=== PATIENT | female | born 1985 | race Caucasian/White ===

== ENCOUNTER 2024-03-02 14:12 | Emergency (ER) | payer BC, SELFPAY ==
[2024-03-02 14:16] VITALS: BP 128/79
[2024-03-02 15:27] VITALS: BP 105/70
[2024-03-02] MEDS: NSS 1000 IV (15:33)
[2024-03-02 15:39] VITALS: BMI 22.7
[2024-03-02 15:44] LABS: % Basophils 0.5 % (0-2); % Eosinophils 0.7 % (0-6); % Immature Granulocytes 0.2 % (0-0.5); % Lymphocytes 17.2 % (20.5-51.1); % Monocytes 6.7 % (1.7-9.3); % Neutrophils 74.7 % (42.2-75.2); Absolute Eosinophils 0.1 10^3/uL (0-0.7); Absolute Lymphocytes 1.4 10^3/uL (1.2-3.4); Absolute Monocytes 0.6 10^3/uL (0.1-0.6); Absolute Neutrophils 6.1 10^3/uL (1.4-6.5); Hematocrit 36.4 % (37.0-47.0); Hemoglobin 12.6 g/dL (12.0-16.0); Mean Corp Hgb Conc. 34.6 g/dL (33.0-37.0); Mean Corpuscular Hgb 29.6 pg (27.0-31.0); Mean Corpuscular Volume 85.6 fL (81.0-99.0); Mean Platelet Volume 9.4 fL (7.4-10.4); Nucleated Red Blood Cells % 0 %; Platelet Count 279 10^3/uL (130-400); Red Blood Cell Count 4.25 10^6/uL (4.20-5.40); Red Cell Dist. Width 12.7 % (11.5-14.5); White Blood Cell Count 8.2 10^3/uL (4.8-10.8)
[2024-03-02 15:57] LABS: ALT (SGPT) 12 U/L (0-35); AST (SGOT) 20 U/L (14-36); Albumin 4.8 g/dl (3.5-5.0); Alkaline Phosphatase 63 U/L (38-126); Blood Urea Nitrogen 10 mg/dl (7-17); COVID-19 Antigen Negative (Negative); Carbon Dioxide 22 mmol/L (22-30); Chloride 105 mmol/L (98-107); Estimated Creatinine Clearance 102 ml/min; Glucose 100 mg/dl (70-99); Magnesium 2.2 mg/dl (1.6-2.3); Potassium 3.9 mmol/L (3.5-5.1); Sodium 136 mmol/L (135-145); Total Bilirubin 0.6 mg/dl (0.2-1.3); Total Protein 8.2 g/dl (6.3-8.2); eGFR > 60.00
[2024-03-02 16:00] VITALS: BP 109/69
--- NOTE | 2024-03-02 16:53 | ED.GENMED ---
History of Present Illness
General
Chief Complaint: Heart Rate Problem
Source: patient and family
Exam Limitations: none
Time Seen by Provider: 03/02/24 15:07
History of Present Illness
History of Present Illness:
38-year-old female who has a history of anxiety and is on Pristiq. Start escitalopram recently. Shortly after taking a few days of citalopram on Friday she began to feel like her heart rate was high. States it was as high as 130. She also
started to have some muscle tension and spasm and felt little bit lightheaded. Patient stopped the citalopram. Patient has not taken it 2 days. She also felt a little bit 'ill'. She presents for further evaluation. Currently feels better. No
chest pain. No shortness of breath.
Past History
Past History
ED Past Medical History: Psychiatric (Anxiety), Other (Borderline insulin resistant diabetes that is diet controlled) and Other (Migraine headaches, anxiety, GERD)
ED Past Surgical History: None
Social History
Tobacco: Non-smoker
Alcohol: None
Drug: None
Personal: Single
Living: with family
Employment: Student
Family History
Family History: Negative Early CAD, CAD or Sudden
Phy Exam
Physical Exam
Physical Exam:
CONSTITUTIONAL Patient alert and oriented to person, place and time. Well-appearing. Vital signs reviewed.
HEAD atraumatic, normocephalic.
EYES eyelids normal to inspection, Extraocular muscles intact, Conjunctiva normal, Sclera normal.
NECK normal range of motion, Trachea midline, no jugular venous distention.
RESPIRATORY CHEST No respiratory distress noted, Chest expansion equal, Bilateral breath sounds clear.
CARDIOVASCULAR regular rate and rhythm, Heart sounds normal.
ABDOMEN abdomen nontender, Bowel sounds normal. No distention.
BACK normal inspection, no obvious deformities
UPPER EXTREMITY range of motion normal, Motor strength normal, no cyanosis, no edema.
LOWER EXTREMITY range of motion normal, Motor strength normal, no cyanosis, no edema.
NEURO Speech normal, No focal motor deficits, Anthony coma scale 15, Memory normal, Cranial Nerves intact to screening exam.
SKIN skin warm, dry, and normal in color.
PSYCHIATRIC patient oriented to person place and time, Normal affect.
Course
Orders/Labs/Results
Orders:
Orders
03/02/24 14:20
Electrocardiogram (*1) Urgent
Reason for Study: Palpitations
EKG- Treatment ONCE
03/02/24 15:22
0.9% Sodium Chloride 1000 ml [Nss] 1,000 ml IV BOLUS
03/02/24 15:32
COVID-19 Antigen Urgent
Source: Nasal Swab
Complete Blood Count/With Diff Urgent
Comprehensive Metabolic Panel Urgent
HCG, Serum Qualitative Screen Urgent
Comment: SERUM HCG QUALITATIVE ADDED ON BY FLOOR 3:40PM 03-02-24
Magnesium Urgent
03/02/24 15:42
Add On- LAB Urgent
Tests Added?: Serum HCG, qualitative
Abnormal Lab Results
03/02/24
15:32
Hct 36.4 L %
(37.0-47.0)
Lymphocytes % 17.2 L %
(20.5-51.1)
Glucose 100 H mg/dl
(70-99)
03/02/24 15:32
03/02/24 15:32
Vital Signs
Initial and Last Documented VS:
Initial Vital Signs
Temp Pulse Resp BP Pulse Ox
99.3 F 84 18 128/79 99
03/02/24 14:16 03/02/24 14:16 03/02/24 14:16 03/02/24 14:16 03/02/24 14:16
Last Documented Vital Signs
Temp Pulse Resp BP Pulse Ox
98.9 F 80 13 109/69 100
03/02/24 16:00 03/02/24 16:00 03/02/24 16:00 03/02/24 16:00 03/02/24 16:00
MDM/Problems Addressed
Differential Diagnosis Includes:
Medication side effect, serotonin syndrome, electrolyte imbalance, dehydration, long QT syndrome
MDM/Problems Addressed:
Palpitations, mild serotonin syndrome, medication effect
*Pulse Oximetry
Patient hypoxic: no
*EKG
Interpreted by ED Provider?: Yes
Interpretation: normal
Rate: normal
Rhythm: sinus
Interval: normal interval
QRS Pattern: normal QRS
Ischemia: no ischemia
*Tactical Debriefer Officer Interpretation
Rate: normal
Interpretation: normal
Rhythm: sinus
*Critical Care Note
Total Time (30-74mins, 75-104mins- exclusive of procedures): Not Applicable
Data Reviewed
Source: patient and family
Prescriptions/Medications Considered But Not Given:
Consider beta-ryan but EKG normal and residential monitor normal.
Patient Management
Escalation/DeEscalation of care consider admission/obs:
Appears well. Stable. Okay for discharge and outpatient follow-up. Agree with not taking citalopram with Pristiq as it can cause serotonin syndrome. Okay for discharge. Question whether she may have had a mild serotonin syndrome that is since
resolved since she stopped the medication.
ED Attending Note
-
Portions of this chart may have been created with voice recognition software.� Occasional wrong word or��sound alike� substitutions may have occurred due to the inherent limitations of voice recognition software.
Discharge Plan
Departure
Patient Disposition: Home (Routine Discharge)
Date of Disposition: 03/02/24
Time of Disposition: 16:55
Patient with high blood pressure during this ER visit?: No
Discharge Problem:
Palpitations, Medication adverse effect
Instructions: Palpitations (DC)
Prescriptions:
No Action
venlafaxine [Effexor XR] 150 MG capsule,extended release 24hr
242.5 mg PO DAILY
alprazolam 0.25 MG tablet
0.25 mg PO PRN PRN (Reason: anxiety)
Referrals:
Jenifer Todd CRNP [Family Provider] -
Activity Restrictions/Additional Instructions:
Possible mild serotonin syndrome
Return immediately for palpitations, shortness of breath, chest pain or any other concerns. Please stop your citalopram and discuss your further management with your psychiatrist.
Interventions
Interventions:
*Risk Screen - Suicide Last Done: 03/02/24 14:16
*General Assessment Last Done: 03/02/24 14:16
*Neglect/Abuse Screening Last Done: 03/02/24 14:16
ED- Cardiac Assessment Last Done: 03/02/24 15:40
ED- Pulmonary Assessment Last Done: 03/02/24 15:40
Discharge Date and Time
Print Language: [place]
[2024-03-02 17:00] VITALS: BP 113/71
[2024-03-02 17:12] LABS: HCG, Serum Qualitative Screen Negative
== END 2024-03-02 17:09 | disposition home or self-care (01) ==
LOC: EMR 14:12
PROVIDERS: EMERGENCY PHYSICIAN Emergency Medicine; FAMILY PHYSICIAN Nurse Practitioner Family
DX: R42 Dizziness and giddiness (principal); R00.2 Palpitations; R25.2 Cramp and spasm; T43.225A Adverse effect of selective serotonin reuptake inhibitors, initial encounter; Z11.52 Encounter for screening for COVID-19; F41.9 Anxiety disorder, unspecified; E11.9 Type 2 diabetes mellitus without complications; K21.9 Gastro-esophageal reflux disease without esophagitis; G43.909 Migraine, unspecified, not intractable, without status migrainosus; Z88.1 Allergy status to other antibiotic agents
CPT/HCPCS: 99284; 96360; 80053; 83735; 84703; 85025; 87811; 93005

== ENCOUNTER → 2024-06-03 13:37 | Outpatient (REF) | payer BC, SELFPAY | LOC: RCS 13:37 | PROVIDERS: ATTENDING PHYSICIAN Internal Medicine Cardiovascular Disease; FAMILY PHYSICIAN Nurse Practitioner Family | DX: R07.89 Other chest pain (principal) | CPT/HCPCS: 93017 ==

== ENCOUNTER → 2024-06-18 12:54 | Outpatient (REF) | payer BC, SELFPAY | LOC: HWRCS 12:54 | PROVIDERS: ATTENDING PHYSICIAN Internal Medicine Cardiovascular Disease; FAMILY PHYSICIAN Nurse Practitioner Family | DX: R06.02 Shortness of breath (principal) | CPT/HCPCS: 93306 ==

== ENCOUNTER → 2025-05-05 15:21 | Outpatient (REF) | payer BC, SELFPAY | LOC: RAD 15:21 | PROVIDERS: ATTENDING PHYSICIAN Physician Assistant Medical | DX: M54.2 Cervicalgia (principal); G44.209 Tension-type headache, unspecified, not intractable; R42 Dizziness and giddiness | CPT/HCPCS: 72052 ==